=== PATIENT | male | born 1955 | race Caucasian/White ===

== ENCOUNTER 2024-08-14 10:51 | Emergency (ER) | payer MEDICARE ==
[~2024-08-14] VITALS: Ht 175.3 cm; Wt 92.3 kg
[2024-08-14 10:53] VITALS: BP 165/80; PULSE 72; RESP 15; O2SAT 93
--- NOTE | 2024-08-14 11:30 | Physician Documentation ---
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 He denies foreign body concerns. He notes that he swam in the public pool yesterday. He has had what he describes as haziness in the right eye. No discharge. He has a relationship with an rn baby in [place], and notes that he is able to see him this afternoon if needed. Reports that he feels otherwise well and denies chills, fever, chest pain, shortness of breath, body aches, nausea, vomiting. Medication Reconciliation Allergies: Coded Allergies: amoxicillin (Verified Allergy, Unknown, 08/14/24) Uncoded Allergies: SULFANOMIDE (Allergy, Unknown, 08/14/24) Review of Systems ROS As stated above in the HPI, otherwise all systems are reviewed and negative. Physical Exam Vital Signs: Temperature: 97.3, Source: Temporal, Heart Rate: 72, Respiratory Rate: 15, BP: 165/80, Pulse Oximetry: 93, Weight: 92.300 Physical Exam General: Alert, no apparent distress. HEENT: EOMs intact without pain. Erythema right eye with no exudate. Neck: Full range of motion. Respiratory: Lungs clear, no respiratory distress. Chest: No accessory muscle use. Cardiovascular: Regular rate and rhythm, no murmurs. Gastrointestinal: Soft, nontender, nondistended. Bowels sounds present. Extremities: Normal range of motion, no deformity. Neurologic: Oriented x4. Psychiatric: Normal mood and affect. Skin: Normal color, warm and dry. No edema, no ecchymosis. Progress Progress Note Procaine gtts x 2 right eye followed by fluoroscein stain and wood's lamp exam. Global erythema of the eye without foreign body or corneal abrasion noted on exam. Results/Orders Results/Orders Orders - DARLENE LEE NP Eye Procedure (08/14/24 11:31) Completed Orders - DARLENE LEE ASSESSMENT MANAGER Proparacaine Ophth Solution (Alcaine Oph (08/14/24 11:35) Fluorescein 1mg Ophthal Strip (Ful-Dee O (08/14/24 11:35) Proparacaine Ophth Solution (Alcaine Oph (08/14/24 11:35) Vital Signs 08/14/24 10:53 Temp 97.3 Pulse 72 Resp 15 B/P (MAP) 165/80 Pulse Ox 93 Medical Decision Making Additional Comment Patient has a relationship with a an rn baby in [place], and plans to go see him this afternoon. Discussed with the patient this could simply be a bacterial or allergic conjunctivitis. However, as he already has almost no vision in the left eye, it would be advisable for him to proceed to see the rn baby. Departure Time of Disposition: 11:59 Disposition: 01 HOME / SELF CARE / HOMELESS Impression: Primary Impression: Pain, eye, right Additional Impression: Conjunctivitis Qualified Codes: H10.31 - Unspecified acute conjunctivitis, right eye Discharge Instructions: Bacterial Conjunctivitis, Adult Additional Instructions: Unclear cause of your eye irritation and redness. Global redness is seen on exam but no corneal abrasion or foreign body. Proceed to your eye doctor for an appt this afternoon as discussed. Please return if needed. Followup with primary care next week. Referrals: NO PRIMARY CARE PROVIDER (PCP) Education Educated: Patient, Family Educated regarding: diagnosis, treatment, prognosis, need for follow up Signature Scribe Signature: no scribe Attestation: The note accurately reflects work and decisions made by me.Darlene Ribeiro NP 08/14/24 12:06 DARLENE LEE NP August 14, 2024 11:30
[2024-08-14] MEDS ORDERED: proparacaine 0.5% ophthalmic drops 15ml RIGHTEYE ONE (11:35)
[2024-08-14] MEDS: fluorescein sod 1mg ophthalmic strip RIGHTEYE ONE (11:46)
[2024-08-14] MEDS: proparacaine 0.5% ophthalmic drops 15ml RIGHTEYE ONE (11:47)
[2024-08-14 12:07] VITALS: TEMP 97.3
== END 2024-08-14 12:08 | disposition home or self-care (01) ==
LOC: ER 10:52
DX: H10.9 Unspecified conjunctivitis (principal); Z88.0 Allergy status to penicillin
CPT/HCPCS: 99283